=== PATIENT | female | born 1985 | race Caucasian/White ===

== ENCOUNTER 2017-05-01 22:09 | Emergency (ER) | payer MEDICAID ==
[~2017-05-01] VITALS: Ht 160 cm; Wt 83.3 kg
[2017-05-01 22:18] VITALS: BP 115/84
[2017-05-01] MEDS ORDERED: HYDROcodone/APAP 5/325 TABLET PO ONE (23:30)
[2017-05-01] MEDS ORDERED: HYDROcodone/APAP 5/325 TABLET ONE (23:30)
== END 2017-05-02 00:05 | disposition home or self-care (01) ==
LOC: ED 23:25
DX: S16.1XXA Strain of muscle, fascia and tendon at neck level, initial encounter (principal); S00.03XA Contusion of scalp, initial encounter; S00.81XA Abrasion of other part of head, initial encounter; Y04.0XXA Assault by unarmed brawl or fight, initial encounter; Y93.89 Activity, other specified; Y92.89 Other specified places as the place of occurrence of the external cause; Y99.2 Volunteer activity
CPT/HCPCS: 70450; 70486; 72125; 99284

== ENCOUNTER 2017-05-03 10:46 | Emergency (ER) | payer MEDICAID ==
[~2017-05-03] VITALS: Ht 157.5 cm; Wt 82.0 kg
[2017-05-03 11:02] VITALS: BP 120/82
[2017-05-03 13:01] LABS: BASOPHILS # (AUTO) 0.02 x10^3/uL (0-0.1); BASOPHILS % (AUTO) 0 % (0-1); EOSINOPHILS # (AUTO) 0.02 x10^3/uL (0-0.4); EOSINOPHILS % (AUTO) 0 % (1-7); LYMPHOCYTES # (AUTO) 1.07 x10^3/uL (1-3.4); LYMPHOCYTES % (AUTO) 13 % (22-44); MD NO; MEAN CORPUSCULAR HEMOGLOBIN 29.6 pg (27.0-34.8); MEAN CORPUSCULAR HGB CONC 33.4 g/dL (32.4-35.8); MEAN CORPUSCULAR VOLUME 88.8 fL (80-100); MONOCYTES # (AUTO) 0.81 x10^3/uL (0.2-0.8); MONOCYTES % (AUTO) 10 % (2-9); NEUTROPHILS % (AUTO) 77 % (42-75); PLATELET COUNT 210 x10^3/uL (130-400); RED BLOOD COUNT 4.66 x10^6/uL (3.82-5.3); RED CELL DISTRIBUTION WIDTH 15.7 % (9.6-15.2)
[2017-05-03 13:11] LABS: ALBUMIN 3.9 g/dL (3.4-5.0); ANION GAP 6 mmol/L (5-15); CALCIUM 8.4 mg/dL (8.5-10.1); CHLORIDE 109 mmol/L (98-107); CREATININE 0.89 mg/dL (0.55-1.02)
[2017-05-03 13:59] LABS: CULTURE INDICATED? YES; MICROSCOPIC INDICATED
== END 2017-05-03 15:24 | disposition home or self-care (01) ==
LOC: ED 15:08
DX: N93.9 Abnormal uterine and vaginal bleeding, unspecified (principal); R11.2 Nausea with vomiting, unspecified; R10.9 Unspecified abdominal pain
CPT/HCPCS: 36415; 76801; 80048; 81001; 82040; 84702; 85025; 86901; 87077; 87086; 87186; 99285

== ENCOUNTER 2017-05-05 21:59 | Observation (INO) | payer MEDICAID ==
[~2017-05-05] VITALS: Ht 160 cm; Wt 82.0 kg
[2017-05-05] MEDS ORDERED: ZIPRASIDONE 20 MG INJ IM ONE (23:00)
[2017-05-05] MEDS ORDERED: ZIPRASIDONE 20 MG INJ IM PRN (23:30)
[2017-05-05 23:32] LABS: BASOPHILS # (AUTO) 0.07 x10^3/uL (0-0.1); BASOPHILS % (AUTO) 1 % (0-1); EOSINOPHILS # (AUTO) 0.15 x10^3/uL (0-0.4); EOSINOPHILS % (AUTO) 1 % (1-7); LYMPHOCYTES # (AUTO) 2.71 x10^3/uL (1-3.4); LYMPHOCYTES % (AUTO) 26 % (22-44); MD NO; MEAN CORPUSCULAR HEMOGLOBIN 29.6 pg (27.0-34.8); MEAN CORPUSCULAR HGB CONC 33.3 g/dL (32.4-35.8); MEAN CORPUSCULAR VOLUME 88.8 fL (80-100); MEAN PLATELET VOLUME 9.8 fL (7.4-10.4); MONOCYTES # (AUTO) 1.12 x10^3/uL (0.2-0.8); MONOCYTES % (AUTO) 11 % (2-9); NEUTROPHILS % (AUTO) 61 % (42-75); PLATELET COUNT 265 x10^3/uL (130-400); RED BLOOD COUNT 4.74 x10^6/uL (3.82-5.3); RED CELL DISTRIBUTION WIDTH 15.3 % (9.6-15.2)
[2017-05-05 23:41] LABS: ALANINE AMINOTRANSFERASE 70 U/L (12-78); ANION GAP 9 mmol/L (5-15); CALCIUM 9.1 mg/dL (8.5-10.1); CHLORIDE 106 mmol/L (98-107); CREATININE 0.92 mg/dL (0.55-1.02)
[2017-05-05 23:43] LABS: ALKALINE PHOSPHATASE 72 U/L (45-117); BILIRUBIN,TOTAL 0.4 mg/dL (0.2-1.0); TOTAL PROTEIN 8.3 g/dL (6.4-8.2)
[2017-05-05 23:44] LABS: ACETAMINOPHEN < 2 mcg/mL (10-30)
[2017-05-05 23:52] LABS: CULTURE INDICATED? YES; HCG UR SG 1.024 (1.003-1.030); MICROSCOPIC INDICATED
[2017-05-06 00:06] LABS: AMPHETAMINE SCREEN, URINE Positive (Negative); BARBITURATE SCREEN, URINE Negative (Negative); BENZODIAZEPINE SCREEN, URINE Negative (Negative); CANNABINOID SCREEN, URINE Negative (Negative); COCAINE SCREEN, URINE Negative (Negative); METHADONE SCREEN, URINE Negative (Negative); OPIATE SCREEN, URINE Negative (Negative)
[2017-05-06] MEDS ORDERED: NITROFURANTOIN (MACROBID) 100 MG CAPSULE PO ONE (01:00)
[2017-05-06] MEDS ORDERED: NITROFURANTOIN (MACROBID) 100 MG CAPSULE ONE (01:09)
[2017-05-06] MEDS ORDERED: ZIPRASIDONE 20MG CAPSULE PO SCH (05:00)
[2017-05-06] MEDS ORDERED: BENZTROPINE 1 MG/ML, 2 ML IM PRN (06:00)
[2017-05-06] MEDS ORDERED: TEMAZEPAM 15 MG CAPSULE PO PRN (06:00)
[2017-05-06] MEDS ORDERED: ZIPRASIDONE 20 MG INJ IM PRN (06:00)
[2017-05-06] MEDS ORDERED: BENZTROPINE 1 MG TABLET PO PRN (06:00)
[2017-05-06] MEDS ORDERED: HALOPERIDOL 5 MG/ML IM PRN (06:00)
[2017-05-06] MEDS ORDERED: ACETAMINOPHEN 325 MG TABLET PO PRN (06:00)
[2017-05-06] MEDS: NITROFURANTOIN (MACROBID) 100 MG CAPSULE PO SCH ×2 (08:25→20:23)
[2017-05-06] MEDS ORDERED: NITROFURANTOIN 50 MG CAPSULE PO SCH (09:00)
[2017-05-06] MEDS: NICOTINE 21 MG/24 HR PATCH.TD24 TD SCH (14:15)
[2017-05-06 20:15] VITALS: BP 101/86
[2017-05-07 07:46] VITALS: BP 105/79
[2017-05-07] MEDS: NITROFURANTOIN (MACROBID) 100 MG CAPSULE PO SCH ×2 (09:04→20:26)
[2017-05-07] MEDS: NICOTINE 21 MG/24 HR PATCH.TD24 TD SCH (09:04)
[2017-05-07 16:02] VITALS: BP 119/58
[2017-05-07 20:00] VITALS: BP 106/75
[2017-05-08] MEDS: NITROFURANTOIN (MACROBID) 100 MG CAPSULE PO SCH ×2 (08:12→20:46)
[2017-05-08] MEDS: NICOTINE 21 MG/24 HR PATCH.TD24 TD SCH (08:13)
[2017-05-08 08:21] VITALS: BP 103/61
[2017-05-08 19:27] VITALS: BP_SYST 106; BP_SYST 109; BP_DIAS 63; BP_DIAS 74
[2017-05-09 07:49] VITALS: BP 105/65
[2017-05-09] MEDS: NITROFURANTOIN (MACROBID) 100 MG CAPSULE PO SCH ×2 (08:26→20:01)
[2017-05-09] MEDS: NICOTINE 21 MG/24 HR PATCH.TD24 TD SCH (08:27)
[2017-05-09] MEDS ORDERED: FLUCONAZOLE 100 MG TABLET PO ONE (13:30)
[2017-05-09 19:38] VITALS: BP 93/58
[2017-05-10 08:00] VITALS: BP 111/71
[2017-05-10] MEDS: NITROFURANTOIN (MACROBID) 100 MG CAPSULE PO SCH ×2 (09:37→20:15)
[2017-05-10] MEDS: NICOTINE 21 MG/24 HR PATCH.TD24 TD SCH (09:39)
[2017-05-10 20:01] VITALS: BP 102/65
[2017-05-11] MEDS: NITROFURANTOIN (MACROBID) 100 MG CAPSULE PO SCH ×3 (08:24→20:41)
[2017-05-11] MEDS: NICOTINE 21 MG/24 HR PATCH.TD24 TD SCH (08:25)
[2017-05-11 08:40] VITALS: BP 97/69
[2017-05-11 20:02] VITALS: BP 104/67
[2017-05-12 08:00] VITALS: BP 98/58
[2017-05-12] MEDS: NITROFURANTOIN (MACROBID) 100 MG CAPSULE PO SCH (09:00)
[2017-05-12] MEDS: NICOTINE 21 MG/24 HR PATCH.TD24 TD SCH (09:09)
[2017-05-12 19:33] VITALS: BP 116/67
[2017-05-13] MEDS: NICOTINE 21 MG/24 HR PATCH.TD24 TD SCH (07:56)
[2017-05-13 07:57] VITALS: BP 106/69
== END 2017-05-13 11:45 ==
LOC: ED 05-06 00:49 → EDIP 05-06 05:01 → SUATTDRO 05-06 05:34 → 2N 05-06 06:17
PROVIDERS: ADMIT Internal Medicine; ATTEND Internal Medicine
DX: F23 Brief psychotic disorder (principal); R44.1 Visual hallucinations; B37.3 Candidiasis of vulva and vagina; N39.0 Urinary tract infection, site not specified; F15.90 Other stimulant use, unspecified, uncomplicated; F17.210 Nicotine dependence, cigarettes, uncomplicated; F41.1 Generalized anxiety disorder; F43.10 Post-traumatic stress disorder, unspecified; B96.20 Unspecified Escherichia coli [E. coli] as the cause of diseases classified elsewhere
CPT/HCPCS: 36415; 80053; 80307; 80329; 81001; 81025; 85025; 87077; 87086; 87186; 96372; 99285; G0378; J3486; G0480

== ENCOUNTER 2017-06-18 11:27 | Inpatient (IN) | payer MEDICAID ==
[~2017-06-18] VITALS: Ht 160 cm; Wt 84.8 kg
[2017-06-18] MEDS ORDERED: KETOROLAC 60 MG/2 ML IM ONE (12:00)
[2017-06-18] MEDS ORDERED: ONDANSETRON ODT 4 MG PO ONE (12:00)
[2017-06-18] MEDS ORDERED: ONDANSETRON ODT 4 MG ONE (12:21)
[2017-06-18] MEDS ORDERED: KETOROLAC 30 MG/1 ML ONE (12:21)
[2017-06-18] MEDS ORDERED: VENL75CA PO (12:29)
[2017-06-18] MEDS ORDERED: PRAZ2CAP2 PO (12:29)
[2017-06-18] MEDS ORDERED: RISP1TAB3 PO (12:29)
[2017-06-18] MEDS ORDERED: TRAZ50TA18 PO (12:29)
[2017-06-18 12:35] LABS: BASOPHILS # (AUTO) 0.01 x10^3/uL (0-0.1); BASOPHILS % (AUTO) 0 % (0-1); EOSINOPHILS # (AUTO) 0.14 x10^3/uL (0-0.4); EOSINOPHILS % (AUTO) 2 % (1-7); LYMPHOCYTES # (AUTO) 1.67 x10^3/uL (1-3.4); LYMPHOCYTES % (AUTO) 25 % (22-44); MD NO; MEAN CORPUSCULAR HEMOGLOBIN 29.4 pg (27.0-34.8); MEAN CORPUSCULAR HGB CONC 33.2 g/dL (32.4-35.8); MEAN CORPUSCULAR VOLUME 88.7 fL (80-100); MEAN PLATELET VOLUME 10.6 fL (7.4-10.4); MONOCYTES # (AUTO) 0.74 x10^3/uL (0.2-0.8); MONOCYTES % (AUTO) 11 % (2-9); NEUTROPHILS # (AUTO) 4.14 x10^3/uL (1.8-6.8); NEUTROPHILS % (AUTO) 62 % (42-75); PLATELET COUNT 198 x10^3/uL (130-400); RED BLOOD COUNT 4.56 x10^6/uL (3.82-5.3); RED CELL DISTRIBUTION WIDTH 15.9 % (9.6-15.2)
[2017-06-18 12:46] LABS: ALANINE AMINOTRANSFERASE 399 U/L (12-78); ALBUMIN 3.7 g/dL (3.4-5.0); ANION GAP 8 mmol/L (5-15); CALCIUM 8.6 mg/dL (8.5-10.1); CHLORIDE 108 mmol/L (98-107); CREATININE 0.87 mg/dL (0.55-1.02)
[2017-06-18 12:53] LABS: ALKALINE PHOSPHATASE 66 U/L (45-117); BILIRUBIN,TOTAL 0.2 mg/dL (0.2-1.0); TOTAL PROTEIN 7.5 g/dL (6.4-8.2)
[2017-06-18] MEDS ORDERED: SODIUM CHLORIDE 0.9% 1,000 ML IV ONE (13:07)
[2017-06-18] MEDS ORDERED: ONDANSETRON 2MG/ML, 2ML IVPush ONE (13:30)
[2017-06-18] MEDS ORDERED: MORPHINE SULFATE 4 MG/ML, 1ML IVPush PRN (13:30)
[2017-06-18] MEDS ORDERED: SODIUM CHLORIDE FLUSH 10ML SYR IVF ONE (13:30)
[2017-06-18] MEDS ORDERED: MORPHINE SULFATE 4 MG/ML, 1ML ONE (13:31)
[2017-06-18] MEDS ORDERED: ONDANSETRON 2MG/ML, 2ML ONE ×2 (14:06→14:22)
[2017-06-18] MEDS ORDERED: BUPIVACAINE/PF 0.5% ONE (14:19)
[2017-06-18] MEDS ORDERED: EPINEPHRINE 1 MG/ML, 1ML ONE (14:19)
[2017-06-18] MEDS ORDERED: MIDAZOLAM 1 MG/ML, 2ML ONE (14:20)
[2017-06-18] MEDS ORDERED: FENTANYL PF 250 MCG/5ML ONE (14:20)
[2017-06-18] MEDS ORDERED: DEXAMETHASONE 4 MG/ML, 1ML ONE (14:22)
[2017-06-18] MEDS ORDERED: SUCCINYLCHOLINE 20 MG/ML, 10ML ONE (14:22)
[2017-06-18] MEDS ORDERED: ROCURONIUM 10 MG/ML,10ML ONE (14:22)
[2017-06-18] MEDS ORDERED: CEFAZOLIN 1,000 MG ONE (14:22)
[2017-06-18] MEDS ORDERED: PROPOFOL 10 MG/ML, 20ML ONE (14:22)
[2017-06-18] MEDS ORDERED: GLYCOPYRROLATE 0.2MG/1ML, 5ML ONE (14:22)
[2017-06-18] MEDS ORDERED: NEOSTIGMINE 1 MG/ML, 10ML ONE (14:22)
[2017-06-18] MEDS ORDERED: LABETALOL 5MG/ML, 20ML IV PRN (14:30)
[2017-06-18] MEDS ORDERED: MIDAZOLAM 1 MG/ML, 2ML IV PRN (14:30)
[2017-06-18] MEDS ORDERED: MEPERIDINE/PF 25MG/0.5ML IVPush PRN (14:30)
[2017-06-18] MEDS ORDERED: ACETAMINOPHEN 325 MG TABLET PO PRN (14:30)
[2017-06-18] MEDS ORDERED: METOCLOPRAMIDE 5 MG/ML, 2ML IV PRN (14:30)
[2017-06-18] MEDS ORDERED: OXYcodone 5 MG/5 ML ORAL.SOL UDC PO PRN (14:30)
[2017-06-18] MEDS ORDERED: HYDROmorphone 1 MG/ML, 1ML IV PRN (14:30)
[2017-06-18] MEDS ORDERED: PROMETHAZINE 25 MG/ML, 1ML IV PRN (14:30)
[2017-06-18] MEDS ORDERED: DIAZEPAM 5 MG/ML, 2ML IVPush PRN (14:30)
[2017-06-18] MEDS ORDERED: LORazepam 2 MG/ML, 1ML IVPush PRN (14:30)
[2017-06-18] MEDS ORDERED: ALBUTEROL/IPRATROPIUM 2.5MG/0.5MG, 3 ML NPPB PRN (14:30)
[2017-06-18] MEDS ORDERED: hydrALAzine 20 MG/ML, 1ML IV PRN (14:30)
[2017-06-18] MEDS ORDERED: ONDANSETRON 2MG/ML, 2ML IVPush PRN ×2 (14:30→17:00)
[2017-06-18] MEDS ORDERED: CEFOTETAN 2 GM ONE (14:34)
[2017-06-18] MEDS ORDERED: BUPIVACAINE/PF-EPI 0.5% 1:200K INFIL ONE (14:45)
[2017-06-18] MEDS ORDERED: LIDOCAINE-MPF 2% ,5ML ONE (14:56)
[2017-06-18] MEDS: FENTANYL PF 100 MCG/2ML IV PRN ×2 (15:30→15:57)
[2017-06-18] MEDS ORDERED: OXYcodone 5 MG/5 ML ORAL.SOL UDC ONE (15:31)
[2017-06-18] MEDS ORDERED: FENTANYL PF 100 MCG/2ML ONE (15:31)
[2017-06-18 16:08] LABS: MICROSCOPIC INDICATED
[2017-06-18] MEDS ORDERED: HYDROmorphone 2 MG/ML, 1ML ONE ×2 (16:39→18:29)
[2017-06-18] MEDS ORDERED: OXYcodone/APAP 5/325MG TABLET PO PRN (17:00)
[2017-06-18 18:01] VITALS: BP 107/67
== END 2017-06-18 18:20 | disposition home or self-care (01) | DRG 419 ==
LOC: ED 13:20 → EDIP 13:21 → ED 13:36 → 4NOR 16:20
PROVIDERS: ADMIT Colon & Rectal Surgery; ATTEND Colon & Rectal Surgery
PROC: 0FT44ZZ Resection of Gallbladder, Percutaneous Endoscopic Approach (ICD-10-PCS; principal; 2017-06-18 14:00)
DX: K81.0 Acute cholecystitis (principal); F43.10 Post-traumatic stress disorder, unspecified
CPT/HCPCS: 36415; 76700; 80053; 81001; 83690; 84703; 85025; J0171; J0690; J1100; J1885; J2250; J2405; J2704; J2710; J3010; J3490; Q0162; J0330; J7030; S0074